=== PATIENT | female | born 1940 | race Caucasian/White ===

== ENCOUNTER 2021-06-25 06:12 | Observation (INO) ==
--- NOTE | 2021-05-31 13:15 | PAT Medication Instructions ---
Medication Instructions Date of Service May 31, 2021 Home Medications albuterol sulfate 90 mcg/actuation aerosol inhaler (Ventolin HFA) 1 inh INHALATION UD PRN aspirin 81 mg tablet,delayed release (Aspirin Low Dose) 81 mg PO QAM atorvastatin 20 mg tablet 20 mg PO QAM calcium carbonate 600 mg calcium (1,500 mg) tablet (Calcium) 600 mg PO QAM cholecalciferol (vitamin D3) 25 mcg (1,000 unit) capsule 25 mcg PO QAM cranberry 500 mg capsule 930 mg PO QAM glipizide 10 mg tablet 10 mg PO QAM metformin 500 mg tablet,extended release 24hr 1,000 mg PO BID metoprolol succinate 50 mg tablet,extended release 24 hr 50 mg PO QAM omega 0-zhe-fhd-fish oil 1,000 mg (120 mg-180 mg) capsule (Fish Oil) 1 cap PO QAM verapamil 120 mg 24 hr capsule,extended release 120 mg PO QAM vitamin B complex 1 tab PO QAM STOP taking 2 weeks before surgery (or as soon as possible if surgery is within 2 weeks) cranberry 500 mg capsule 930 mg PO QAM omega 3-znh-yme-fish oil 1,000 mg (120 mg-180 mg) capsule (Fish Oil) 1 cap PO QAM DO NOT take the morning of surgery calcium carbonate 600 mg calcium (1,500 mg) tablet (Calcium) 600 mg PO QAM cholecalciferol (vitamin D3) 25 mcg (1,000 unit) capsule 25 mcg PO QAM glipizide 10 mg tablet 10 mg PO QAM metformin 500 mg tablet,extended release 24hr 1,000 mg PO BID vitamin B complex 1 tab PO QAM Take morning of surgery With a small sip of water, OTHERWISE NOTHING TO EAT OR DRINK AFTER MIDNIGHT: albuterol sulfate 90 mcg/actuation aerosol inhaler (Ventolin HFA) 1 inh INHALATI ON UD PRN (use if needed; please bring rescue inhaler with you to hospital day of surgery if possible) aspirin 81 mg tablet,delayed release (Aspirin Low Dose) 81 mg PO QAM (continue as normal unless told otherwise by surgeon) atorvastatin 20 mg tablet 20 mg PO QAM metoprolol succinate 50 mg tablet,extended release 24 hr 50 mg PO QAM verapamil 120 mg 24 hr capsule,extended release 120 mg PO QAM Take evening before surgery albuterol sulfate 90 mcg/actuation aerosol inhaler (Ventolin HFA) 1 inh INHALATION UD PRN (if needed) metformin 500 mg tablet,extended release 24hr 1,000 mg PO BID Other Notes If you have any questions please call us at [phone] or [phone] or [phone] or [phone]
--- NOTE | 2021-06-02 11:15 | Anesthesiology Consultation ---
Date of Service June 02, 2021 Assessment & Plan (1) Encounter for pre-operative examination: Chart Review Chart Review: Acceptable Risk for Surgery (pending preop Covid testing results ) and Patient seen in Pre Admission Testing - Check BSG AM DOS Per PAT appt on 06/01/21, patient denies any recent travel or large group activities. Wears mask when required. No known Covid positive exposures or Covid related symptoms. No known Covid infection in the past 90 days. Pt is vaccinated for Covid. Preop Covid testing scheduled 06/23/21= will await results. Educated on importance of self quarantining, social distancing and wearing mask in public for the patient one week prior to surgery and after Covid testing done Teaching & Discussion Pre-Anesthesia Teaching/Discussion Notes: Instructed NPO after midnight before surgery,except medications with 15 cc of water. Medication instructions provided according to the [facility] guidelines. History Surgery Operation Date: 06/25/21 14:05 Proposed Procedures p Left Anterior Total Hip Arthroplasty - Rafa Gates DO Height/Weight Height: 5 ft 3 in Weight: 69.7 kg Allergies Allergy/AdvReac Type Severity Reaction Status Date / Time Penicillins Allergy Unknown Increased Verified 05/31/21 16:18 HR Sulfa (Sulfonamide Allergy Unknown Rash Verified 05/31/21 11:12 Antibiotics) Medications Home Medications Medication Instructions Recorded Confirmed Last Taken albuterol sulfate 90 mcg/actuation 1 inh INHALATION UD PRN 04/27/21 05/31/21 Unknown aerosol inhaler (Ventolin HFA) aspirin 81 mg tablet,delayed 81 mg PO QAM 04/27/21 05/31/21 Unknown release (Aspirin Low Dose) atorvastatin 20 mg tablet 20 mg PO QAM 04/27/21 05/31/21 Unknown calcium carbonate 600 mg calcium 600 mg PO QAM 04/27/21 05/31/21 Unknown (1,500 mg) tablet (Calcium) cholecalciferol (vitamin D3) 25 25 mcg PO QAM 04/27/21 05/31/21 Unknown mcg (1,000 unit) capsule cranberry 500 mg capsule 930 mg PO QAM 04/27/21 05/31/21 Unknown glipizide 10 mg tablet 10 mg PO QAM 04/27/21 05/31/21 Unknown metformin 500 mg tablet,extended 1,000 mg PO BID 04/27/21 05/31/21 Unknown release 24hr metoprolol succinate 50 mg 50 mg PO QAM 04/27/21 05/31/21 Unknown tablet,extended release 24 hr omega 1-fgi-tfa-fish oil 1,000 mg 1 cap PO QAM 04/27/21 05/31/21 Unknown (120 mg-180 mg) capsule (Fish Oil) verapamil 120 mg 24 hr 120 mg PO QAM 04/27/21 05/31/21 Unknown capsule,extended release vitamin B complex 1 tab PO QAM 04/27/21 05/31/21 Unknown Past Medical History Medical History (Updated 06/03/21 @ 08:53 by Marilee Contreras PA-C) Cataracts, both eyes Diabetes Glucose controlled per patient Hgb A1C 7.8 per 06/02/21 preop labs History of left breast cancer DX 2009, S/p left mastectomy (2010) Left UE restriction HTN (hypertension) Hypercholesteremia Nausea and vomiting after administration of anesthetic agent NAUSEA AFTER RECTAL FISTULA REPAIR ("NOT SEVERE") Osteoarthritis Exercise / Class Metabolic Activity II 4-5 Yardwork/Stairs/Walk up hill (one flight of stairs- no chest pain or SOB ) Past Family History Family History Aunt Family history of diabetes mellitus Past Surgical History Surgical History H/O total mastectomy of left breast History of colonoscopy History of hysterectomy History of rectal surgery RECTAL FISTULA [place] teeth removed Past Anesthesia History No Hx of Anesthesia Complications (with exception to one episode of PONV ) and No Family Hx of Anesthesia Complications History of PONV No Hx of Motion Sickness and History of PONV (one mild episode with rectal fistual repair ) Social History Smoking Status: Never smoker Do You Dip or Chew Tobacco: No Hx Alcohol Use: No substance use type: does not use Review of Systems Hx of snoring - no witnessed apnea - no hx of sleep study Patient denies chest pain, shortness of breath, dyspnea on exertion, reflux, cough, wheezing, palpitations. No hx of seizures, stroke, ME. No hx of blood clots or blood transfusions Physical Exam Vital Signs VITALS BP 164/68 (pt will check BP at home and call PCP if still elevated ) P 70 TEMP 98.5 SP02 95% RESP 16 Constitutional no acute distress ENMT Mouth: no TMJ clicking Thyromental Distance: < 3.5 Finger Breadths (3.0) Mallampati Class: III Partial upper denture Neck + limited neck extension Respiratory normal respiratory effort; no respiratory distress Auscultation: lungs clear to auscultation bilaterally; no wheezes Cardiovascular Rate/Rhythm: regular rate and regular rhythm Heart Sounds: no murmur Vessels: no carotid bruit Musculoskeletal Spine: no pain with cervical ROM Extremities: extremities normal to inspection Psychiatric Orientation: alert Lab Results Anesthesia Preop Results Results Anesthesia Widget: WBC 10.77 K/uL (4.8-10.8) 06/02/21 Hgb 13.2 g/dL (12.0-16.0) 06/02/21 Hct 40.4 % (37-47) 06/02/21 Plt 329 K/uL (130-400) 06/02/21 Na 137 mmol/L (136-145) 06/02/21 K 4.5 mmol/L (3.5-5.1) 06/02/21 Cl 104 mmol/L (98-107) 06/02/21 CO2 25 mmol/L (21-32) 06/02/21 BUN 20 mg/dl (6-23) 06/02/21 Creat 0.64 mg/dl (0.6-1.2) 06/02/21 Glucose Level 204 mg/dl (70-99(Fasting)) H 06/02/21 PT 10.6 Seconds (9.0-12.0) 06/02/21 PTT 24.9 Seconds (21.0-31.0) 06/02/21 INR 1.0 (0.9-1.1) 06/02/21 HA1c 7.8 % (4.5-5.6) H 06/02/21 Blood Type A Positive 06/02/21 Antibody Screen NEGATIVE 06/02/21 Testing Electrocardiogram Date: 06/02/21 Findings: + NSR @ (65bpm ) Normal EKG per cardio Chest X-Ray Date: 06/02/21 Findings: + NAD and + cardiomegaly (mild ) Mild right hemidiaphragmatic elevation.
[~2021-06-25 06:12] MED LIST: ACETAMINOPHEN 500 MG TAB PO SCH; FAMOTIDINE 20 MG TAB PO SCH; GABAPENTIN 300 MG CAP PO SCH; Ketorolac (*for OR use only*) 30 MG, dexAMETHasone 4 MG, KETAMINE HCL (**OR use only) 1... INFIL SCH; LR 500ML BOLUS, THEN 15ML/HR IV SCH; LR 60ML/HR IV SCH; TRANEXAMIC ACID 1,000 MG **IV Intra-op IV SCH; TRANEXAMIC ACID 1,000 MG **IV Pre-op IV SCH; ceFAZolin 1000MG 1,000 MG/7.5 ML SYR IV SCH; dexAMETHasone 4 MG TAB PO SCH
[2021-06-25] MEDS ORDERED: BUPIVACAINE 0.5 % 5 MG/1 ML PF 10ML VIAL ONE (06:27)
--- NOTE | 2021-06-25 06:50 | History & Physical Bridge Note ---
Date of Service June 25, 2021 History & Physical Bridge Note I have examined the patient, reviewed the History & Physical and in the interval since the performance of the History & Physical I have noted the following changes of clinical significance: no changes noted
[2021-06-25] MEDS ORDERED: ONDANSETRON INJ 2 MG/ML 2 ML VIAL IV PRN ×2 (07:52→12:30)
[2021-06-25] MEDS ORDERED: HYDROmorphone INJ 2 MG/ML SYR/VIAL IV PRN (07:52)
[2021-06-25] MEDS ORDERED: ATROPINE SULFATE 0.1 MG/ML 10ML SYR IV PRN (07:52)
[2021-06-25] MEDS ORDERED: fentaNYL citrate 100 MCG/2 ML VIAL IV PRN (07:52)
[2021-06-25] MEDS ORDERED: ePHEDrine sulfate 50 MG/ML AMP IV PRN (07:52)
[2021-06-25] MEDS ORDERED: MIDAZOLAM HCL 1 MG/ML 2ML VIAL ONE (08:03)
[2021-06-25] MEDS ORDERED: ORTHO JOINT ANESTHETIC ONE (09:06)
[2021-06-25] MEDS ORDERED: PROPOFOL IV EMULSION 10 MG/ML 20 ML VIAL IV ONE (10:05)
--- NOTE | 2021-06-25 10:47 | Operative Report ---
PG Post Operative Report Pre & Post Diagnosis Operation Date: 06/25/21 08:50 Pre-Op Diagnosis: Degenerative Joint Disease Post-Op Diagnosis: Degenerative Joint Disease I identified the patient and participated in the time-out.: Yes Procedure Operation Date: 06/25/21 08:50 Actual Procedures p Left Anterior Total Hip Arthroplasty(Left) - Rafa Gates DO Surgeon Rafa Gates, Fraternity Adviser Rafa Barker PAC Estimated Blood Loss 200 Findings Consistent with Post-Op Diagnosis Specimens Left femoral head Complications none Disposition Disposition: Recovery Room Indications Sabrina is a pleasant 80-year-old female who is been doing with chronic increasing left hip and groin pain. X-rays and clinical examination are diagnostic for advanced arthritis of the left hip. After failing conservative treatment, she elected proceed with a left total hip arthroplasty. Description of Procedure Implants used I used a Zimmer[employer]omet total hip arthroplasty system with a size 4 standard offset Avenir Complete stem, a 50 mm G7 cup with a 25mm screw, an E1 polyethylene liner, a 36 mm ceramic head with a 0 neck. Sabrina arrived at the hospital for the above procedure. She was seen in the preoperative holding area and the operative extremity was identified and signed. She was given a spinal anesthetic, a preoperative antibiotic, and TXA. She was then taken back to the operating room and laid on the table in the supine position. She was given basic sedation. The operative leg was secured to a Puristst leg positioner. The hip was then prepped and draped in sterile fashion. A timeout was done and the patient and the operative extremity was properly identified. An anterior approach was used. Dissection was taken down through the fascia and the tensor muscle belly was retracted laterally and the rectus was retracted medially. The circumflex vessels were identified and ligated. The capsule was then incised and tagged for later repair. The femoral neck was then cut and the femoral head was removed. The acetabulum was exposed. Time was spent doing a complete circumferential labral release. Sequential reaming of the acetabulum up to a size 49 reamer was done. Final reamings were done under fluoroscopy to ensure appropriate version. A Biomet 50mm G7 cup was then impacted into place. A single 25 mm screw was placed. The E1 polyethylene liner was then snapped into place. Surrounding soft tissues were then injected with 100 cc of an orthopedic pain control cocktail. The proximal femur was then exposed. Sequential broaching up to a size 4 broach was done. Off that broach a size 36 head with a 0 neck was trialed. The hip was reduced and fluoroscopic images showed anatomic alignment of the implants in acceptable length. The broach was removed. The final size 4 standard offset Avenir Complete stem was then impacted into place. A ceramic 36mm head with a 0 neck was then impacted onto the stem and the hip was reduced. Final fluoroscopic images showed anatomic alignment of the hip. The capsule was then closed with #1 Vicryl suture. A dilute betadyne lavage was then done for 3 minutes. The joint was then irrigated with normal saline solution. The fascia was closed with #1 PDS suture. Skin was closed with 2-0 Vicryl, marcio, and a Silverlon dressing. She was then transferred to a hospital bed and taken to the post anesthesia care unit in stable condition. She tolerated the procedure well. Rafa Barker PA-C, was present for the entire procedure. He was critical for patient positioning, prepping, draping, retraction exposure, wound closure and application of sterile dressing. I attest to the content of the Intraoperative Record and any orders documented therein. Any exceptions are noted below.
--- NOTE | 2021-06-25 11:06 | Fluoroscopy Report ---
FL hip LT 1V CLINICAL HISTORY: LT ANTERIOR HIP COMPARISON STUDY: None. FLUOROSCOPY TIME: 26 seconds. FINDINGS: 2 fluoroscopic spot images of the left hip demonstrate a left total hip arthroplasty. The h ardware is intact. No fracture or dislocation. IMPRESSION: Fluoroscopic assistance provided for left total hip arthroplasty. ACT 112: Negative or not required by law. Electronically signed by: Chaim Chawla M.D. 06/25/2021 11:04 AM
--- NOTE | 2021-06-25 11:37 | XRay Report ---
SINGLE VIEW PELVIS; SINGLE VIEW LEFT HIP CLINICAL HISTORY: Postoperative examination. FINDINGS: An AP portable view of the hips and pelvis with a crosstable lateral portable view of the l eft hip are obtained. A bipolar left hip arthroplasty is in near-anatomic alignment. No acute fract ure is identified. There are expected postoperative changes overlying the left hip including skin cli ps, subcutaneous gas, and soft tissue swelling. Moderate arthritic changes seen in the right hip. Phl eboliths are seen throughout the pelvis. IMPRESSION: Expected postoperative findings status post left hip arthroplasty. No acute fracture is s een. ACT 112: Negative or not required by law. Electronically signed by: Adonis Vega M.D. 06/25/2021 11:35 AM
--- NOTE | 2021-06-25 12:03 | Anesthesiology Progress Note ---
Date of Service June 25, 2021 Anesthesia Post Procedure Vital Signs Vital Signs: Temp Pulse Pulse Resp BP Pulse Ox 06/25/21 11:55 36.3 C L 69 13 118/60 97 06/25/21 11:45 72 13 127/60 96 06/25/21 11:35 71 15 121/59 L 93 06/25/21 11:25 72 14 122/63 95 06/25/21 11:15 74 17 123/53 L 100 06/25/21 11:05 73 16 108/52 L 98 06/25/21 10:59 36.8 C 67 16 101/46 L 99 06/25/21 06:46 36.8 C 78 20 162/68 H 97 Transfer of Care Handoff Completed per policy Notes Mental Status: alert / awake / arousable and participated in evaluation Patient Amnestic to Procedure: Yes Nausea / Vomiting: adequately controlled Pain: adequately controlled Airway Patency, RR, SpO2: stable & adequate BP & HR: stable & adequate Hydration State: stable & adequate Anesthetic Complications: no major complications apparent and Pt Satisfied with anesthetic care
[2021-06-25] MEDS ORDERED: MAGNESIUM HYDROXIDE SUSP 30 ML UDC PO PRN (12:30)
[2021-06-25] MEDS ORDERED: bisacodyL 10 MG SUPP PR PRN (12:30)
[2021-06-25] MEDS ORDERED: HYDROmorphone INJ 0.5 MG/0.5 ML SYR IV PRN (12:30)
[2021-06-25] MEDS ORDERED: oxyCODONE HCL IR 5 MG TAB (IMMEDIATE RELEASE) PO PRN (12:30)
[2021-06-25] MEDS ORDERED: PHARMACY GLYCEMIC MGMT CONSULT PRN (12:30)
[2021-06-25] MEDS ORDERED: ALBUTEROL HFA 8 GM INHALER INH PRN (12:30)
[2021-06-25] MEDS ORDERED: METOCLOPRAMIDE HCL INJ 5 MG/ML 2 ML VIAL IV PRN (12:30)
[2021-06-25] MEDS ORDERED: NALOXONE HCL 0.4 MG/1 ML VIAL/CARP IV PRN (12:30)
[2021-06-25] MEDS ORDERED: INSULIN GLARGINE SOLOSTAR 100 UNITS/ML 3 ML PEN SC STA (13:24)
[2021-06-25] MEDS ORDERED: GLUCAGON FOR INJ 1 MG VIAL SQ PRN (13:30)
[2021-06-25] MEDS ORDERED: CARBOHYDRATES FOR HYPOGLYCEMIA PO PRN (13:30)
[2021-06-25] MEDS ORDERED: GLUCOSE 40% GEL 15 GM TUBE PO PRN (13:30)
[2021-06-25] MEDS ORDERED: GLUCOSE 10 TABS/TUBE PO PRN (13:30)
[2021-06-25] MEDS ORDERED: DEXTROSE 50% 50 ML SYRINGE IV PRN (13:30)
[2021-06-25] MEDS: SODIUM CHLORIDE 0.9% 1000ML 1,000 ML IV SCH ×2 (13:39→23:31)
[2021-06-25] MEDS: KETOROLAC TROMETHAMINE 15 MG/ML VIAL IV SCH ×2 (13:39→20:12)
[2021-06-25] MEDS: ACETAMINOPHEN 500 MG TAB PO SCH ×2 (14:16→20:13)
[2021-06-25] MEDS: INSULIN ASPART PER UNIT SC SCH ×3 (14:16→21:15)
--- NOTE | 2021-06-25 14:53 | Pharmacy Report ---
Pharmacy Glycemic Short Note 2 - Date of Service June 25, 2021 - Glycemic Short BSG Results (Last 24 hours): 06/25/21 06/25/21 06/25/21 06:32 11:03 14:14 POC Glucose 185 H 202 H 294 H OUTPATIENT ANTIDIABETIC REGIMEN: * glipizide 10 mg * Metformin 1000 mg BID * A1c 7.8% on 06/02 ASSESSMENT: * Patient admitted post op following left hip arthroplasty, BSGs elevated, did receive 8 mg po dexamethasone preop * Hold oral medications * Will give weight based stress of 2 lantus x 1 now, weight based stress of 3 novolog * overnight checks PLAN FOR INPATIENT GLYCEMIC CONTROL: * Hold outpatient oral diabetes medications * Basal insulin * Lantus 24x1 * Bolus insulin * NovoLog per scale ACHS or Q6hrs while NPO * Goal Range: Low 110 mg/dL - High 140 mg/dL * Correction Factor: 25 mg/dL/unit * Nutritional / Prandial insulin per carb ratio of 1 unit per 8 grams CHO consumed
[2021-06-25] MEDS: ceFAZolin 2000MG 2,000 MG/15 ML SYR IV SCH (18:21)
[2021-06-25] MEDS: ASPIRIN 81 MG ECTAB PO SCH (20:12)
[2021-06-25] MEDS: DOCUSATE SODIUM 100 MG CAP PO SCH (20:13)
[2021-06-25] MEDS ORDERED: SENNA 8.6 MG TAB PO SCH (21:00)
[2021-06-26] MEDS: ceFAZolin 2000MG 2,000 MG/15 ML SYR IV SCH (00:08)
[2021-06-26] MEDS: KETOROLAC TROMETHAMINE 15 MG/ML VIAL IV SCH ×2 (00:08→06:13)
[2021-06-26] MEDS: INSULIN ASPART PER UNIT SC SCH ×3 (00:12→09:34)
[2021-06-26] MEDS: ACETAMINOPHEN 500 MG TAB PO SCH (05:48)
--- NOTE | 2021-06-26 07:11 | Orthopedic Progress Note ---
Date of Service June 26, 2021 Assessment & Plan (1) Status post left hip replacement: Overall she is doing very well. She is having much pain in the left hip. She will be seen by physical therapy today for ambulation and range of motion exercises. She is on aspirin for DVT prophylaxis. She can be discharged home later today. She will follow-up with orthopedics in 2 weeks. Janet Sandoval was seen and examined at bedside this morning. Overall she is doing very well. She is not any much pain in the left hip. She has been up and ambulating around the room. She has no complaints. Review of Systems All systems reviewed & are unremarkable except as noted in HPI & below. Physical Exam On physical examination of the left hip, the dressing is clean and dry. Her leg lengths are equal. She has active dorsiflexion plantarflexion of her left ankle.. Results & Data Results & Data Laboratory Results . Diagnostic Findings Postoperative x-rays of the left hip show the prosthesis to be in anatomic alignment without any evidence of fracture, desiccation, or loosening. PG Care Time/CCT Total # of Minutes Spent Total Time Spent with Patient: Total time spent is greater than 50% in coordination of care (as documented) at patient's floor/unit and/or counseling patient: Coding Level of Care Code 86438 Post Operative Follow-Up Diagnoses Status post left hip replacement Z96.642
--- NOTE | 2021-06-26 07:12 | Discharge Summary ---
Date of Service June 26, 2021 Principal Diagnosis Same as "Discharge Diagnosis" noted below under Discharge Instructions. Discharge Exam On physical examination of the left hip, the dressing is clean and dry. Her leg lengths are equal. She has active dorsiflexion plantarflexion of her left ankle.. Discharge Data Procedures Performed Operation Date: 06/25/21 08:50 Actual Procedures p Left Anterior Total Hip Arthroplasty(Left) - Rafa Gatse DO Ordered Studies 06/25/21 08:50 FL hip LT 1V Routine Hospital Course (1) Status post left hip replacement: On June 25, 2021 Sabrina arrived at [facility] and underwent a left anterior hip replacement without complication. She had a spinal anesthetic. Postoperatively she was started on aspirin for DVT prophylaxis and transferred to the general orthopedic floors. Her hospital course was uneventful. On postop day #1, her vital signs were stable and her pain was well controlled. She was able to participate well with physical therapy doing ambulation and range of motion exercises. She was then discharged home. She will follow-up with orthopedics in 2 weeks. PG Care Time/CCT Total # of Minutes Spent Total Time Spent with Patient: Total time spent is greater than 50% in coordination of care (as documented) at patient's floor/unit and/or counseling patient: Discharge Plan Discharge Items Patient Disposition: Home - Home Health Services Reason For Visit: Degenerative Joint Disease Discharge Diagnosis: Left hip replacement Activity: As commented below Non-emergency contact: Surgeon Call non-emergency contact if: your wound has increased redness and your wound has increased drainage Follow-up/Referrals: Cesilia Cross MD [Primary Care Provider] - Diet: Regular Addtl Attending Provider Instructions: Activity and Therapy Recommendations: * If you are using [facility] then therapy will be provided at your home until they feel you have accomplished all of your goals. * If you are using [facility] then Physical Therapy will be provided until they feel you are ready to start Outpatient Physical Therapy. * If you are not using home therapy then Outpatient Physical Therapy should start about 3-5 days from your day of surgery. Therapy will last about 6-10 weeks * You were shown a series of exercises in the hospital. Do these exercises three times each day including the exercises you were shown in physical therapy. * Get up and walk several times each day.~ For the first four weeks, try not to stand or walk for more than one hour at a time. If you do stand or walk for more than one hour, you will not hurt anything, but your leg will likely swell.~~ * As you feel comfortable, you may change from the walker or crutches to a cane and~then to independent walking. Medications: * Narcotic You will likely be sent home from the hospital with a prescription for the narcotic pain medication that worked best throughout your stay. * Aspirin Most patients will be required to take Aspirin 81mg twice a day for 6 weeks after surgery. This is obtained [id number] and a prescription is not necessary. * Other medications may be prescribed for specific circumstances. If you have any questions, please call the office at . * Resume previous home medications unless otherwise instructed TEDs/Elastic Stockings: The white elastic stockings help limit swelling and prevent blood clots from forming in your legs. The more you wear them, the more they work. Wear them for six weeks. Dressing Care: Leave the Silverlon dressing in place for 7 days. After 7 days you may remove the dressing. If the incision is not draining then you may leave the marcio open to air. If there is a little bit of drainage or if the marcio are getting stuck on your clothing then cover the incision with a dry dressing. The marcio will be removed at your 2 week follow-up appointment. Showering: You may shower with the Silverlon dressing in place. Do not let the shower spray hit the dressing directly. Pat the Silverlon dressing dry. If the dressing becomes wet underneath, then simply remove the dressing. Keep the incision dry until you are 7 days out from the day of surgery. After 7 days you may remove the Silverlon dressing and shower with the marcio exposed. Let soapy water run over the marcio and pat them dry. Do not scrub or soak the incision. Things To Watch For: * Drainage from the incision site that occurs more than one week after your surgery. * Increased redness at the incision site. * Fever above 102 degrees Fahrenheit. * Unusual chest pain or shortness of breath. * Call [facility] at with any of the above problems Follow-Up Visit: Follow-up with Dr. Gates's PA (Rafa Barker) 2-3 weeks after your day of surgery. He will remove your marcio and answer any questions. If you have any additional questions or concerns, Dr Gates is usually in the office at the same time and will be available An appointment was probably scheduled when you signed-up for surgery in the office. If you have any questions call Office Instructions: More detailed instructions as well as Frequently Asked Questions were provided in a folder by our office when you signed-up for surgery. Please review these instructions when you get home. If you have any further questions or concerns, please feel free to call the office at [phone] Pending Studies at Discharge: No Stand-Alone Forms: My [facility] Medications and DC Order Prescriptions: New oxycodone 5 mg Tablet 5 mg PO Q4H PRN (Reason: pain) Qty: 30 RF: 0 Continued atorvastatin 20 mg tablet 20 mg PO QAM RF: 0 calcium carbonate [Calcium 600] 600 mg calcium (1,500 mg) tablet 600 mg PO QAM RF: 0 cranberry 500 mg capsule 930 mg PO QAM RF: 0 omega 0-ybl-exo-fish oil [Fish Oil] 1,000 mg (120 mg-180 mg) capsule 1 cap PO QAM RF: 0 glipizide 10 mg tablet 10 mg PO QAM RF: 0 metformin 500 mg tablet extended release 24hr 1,000 mg PO BID RF: 0 metoprolol succinate 50 mg tablet extended release 24 hr 50 mg PO QAM RF: 0 albuterol sulfate [Ventolin HFA] 90 mcg/actuation HFA aerosol inhaler 1 inh inhalation UD PRN (Reason: HX BRONCHITIS) RF: 0 verapamil 120 mg capsule,ext rel. pellets 24 hr 120 mg PO QAM RF: 0 vitamin B complex Tablet 1 tab PO QAM RF: 0 cholecalciferol (vitamin D3) 25 mcg (1,000 unit) capsule 25 mcg PO QAM RF: 0 Changed aspirin [Aspirin Low Dose] 81 mg tablet,delayed release (DR/EC) 81 mg PO BID 42 Days Qty: 0 RF: 0 Discharge Orders: Discharge Order (Routine); Ordered 06/26/21 Ordered By: Rafa Gates Admission Data Admit Date/Time: 06/25/21 11:04 Attending Provider: Rafa Gates Admit Provider: Rafa Gates Primary Care Provider: Cesilia Cross
[2021-06-26] MEDS ORDERED: ATORVASTATIN 20 MG TAB PO SCH (09:00)
[2021-06-26] MEDS ORDERED: METOPROLOL SUCC 50MG EXT REL TAB PO SCH (09:00)
[2021-06-26] MEDS ORDERED: VERAPAMIL HCL 120 MG TABCR PO SCH (09:00)
[2021-06-26] MEDS ORDERED: MULTIVITAMIN TAB PO SCH (09:00)
[2021-06-26] MEDS: DOCUSATE SODIUM 100 MG CAP PO SCH (09:35)
[2021-06-26] MEDS: ASPIRIN 81 MG ECTAB PO SCH (09:57)
== END 2021-06-26 12:45 | disposition home health service (06) ==
LOC: 3N 06:12 → ASU 06:12